=== PATIENT | female | born 1965 | race Caucasian/White ===

== ENCOUNTER 2021-06-07 06:29 | Day surgery (SDC) | payer MEDICARE, OTHER ==
[2021-06-07] VITALS (9 sets, daily range): BP systolic 120–152; BP diastolic 68–91; PULSE 64–87; TEMP 98.1–98.8
[~2021-06-07] VITALS: Ht 175.3 cm; Wt 82.3 kg
[2021-06-07] MEDS ORDERED: PRINIVIL40 MG PO (07:00)
[2021-06-07] MEDS ORDERED: HCTZ12.5TAB PO (07:01)
[2021-06-07] MEDS ORDERED: PROTONIX20 MG PO (07:02)
[2021-06-07] MEDS ORDERED: NATURAL MAGNES200 MG PO (07:02)
[2021-06-07] MEDS ORDERED: AMARYL1 MG PO (07:03)
[2021-06-07] MEDS ORDERED: NEURONTIN100 MG/CAP PO (07:03)
[2021-06-07] MEDS ORDERED: EFFEXOR XR75 MG/CAP PO (07:03)
[2021-06-07] MEDS ORDERED: GLUCOPHAGE500 MG/TAB PO (07:04)
[2021-06-07] MEDS ORDERED: ATIVAN 0.50.5 MG/TAB PO (07:04)
--- NOTE | 2021-06-07 07:50 | NUR ---
0640: Patient arrived to outpatient surgery with , Rl. Patient prepped for OR with CHG scrub to left knee and VANESSA hose applied to right lower extremity. 18G placed in left forearm.
--- NOTE | 2021-06-07 12:40 | NUR ---
PATIENT ADMITED INTO ROOM 330 POST OP LTK. A&O. VSS. NO C/O PAIN OR NAUSEA. LLE DRESSING IS CD&I WITH ACEWRAP AND ICE PACK INPLACE. TEDS TO RLE. SCD'S TO BLE. POSITIVE PEDAL PULSES TO BLE. IV FLUIDS INFUSING INTO LEFT FORARM IV. BS IN PACU WAS 107. LIQUIDS AT BEDSIDE. HEAD TO TOE ASSESSMENT COMPLETE. ORIENTED TO ROOM. AT BEDSIDE. CALL LIGHT IN REACH.
--- NOTE | 2021-06-07 13:15 | NUR ---
PATIENT C/O PAIN IN LLE RATED AT 5-6 ON PAIN SCALE. GAVE PRN ROXYCODONE, ONE TAB AND SCHEDULED TYLENOL. PATIENT REPOSITIONED TO COMFORT. PATIENT TOLERATING JELLO WELL. AT BEDSIDE. NO OTHER NEEDS.
--- NOTE | 2021-06-08 01:33 | NUR ---
PT ASSISTED TO BSC WITH SBA. GAITBELT ET WALKER USED. PT TOLERATES ACTIVITY WELL, STATES THAT PAIN IS "NOT BAD", ET RATES IT 5/10. PT URINATES ET RETURNS TO BED. SCDS ON DINESH LEGS. PO TYLENOL ADMINSISTERED ET ANCEF IV TO BEGIN INFUSING THROUGH PT'S SALINE LOCK USING BARD INFUSER. PT DENIES ANY NEEDS. KIMBERLY LIGHT WITHIN REACH.
[2021-06-08 03:22] VITALS: BP 147/85; PULSE 80; TEMP 98.5
--- NOTE | 2021-06-08 05:30 | NUR ---
PT ASSISTED TO BR USING WALKER, GAITBELT ET SBA. GAIT IS STEADY. PT REPORTS HAVING BM BUT HAD FLUSHED TOILET ON OWN. ASSISTED BACK TO BED. PT STATES THAT PAIN IS MINIMAL @ THIS TIME, RATES 3/10. ICE PACK PLACED TO LEFT KNEE. DENIES OTHER NEEDS. CALL LIGHT WITHIN REACH.
[2021-06-08 08:03] VITALS: BP 142/83; PULSE 84; TEMP 98.6
[2021-06-08 08:13] LABS: HEMOGLOBIN 10.5 g/dl (12.5-16.0)
[2021-06-08 08:17] LABS: HEMATOCRIT 30.8 % (37.0-47.0)
--- NOTE | 2021-06-08 10:39 | NUR ---
PT UP WITH THERAPY, AMBULATES WITH SLOW STEADY GAIT. PAIN WELL CONTROLLED WITH PO MEDS. DRESSING CHANGE COMPLETE, AQUACELL PLACED OVER INCISION.
[2021-06-08 11:57] VITALS: BP 152/82; PULSE 87; TEMP 98.3
--- NOTE | 2021-06-08 11:57 | NUR ---
SW met with patient in her room while patient was sitting in chair. D/C plan was discussed with patient. She lives in [place] with her husb in a one level home. No 02 needs but will d/c with a walker. No other DME's. Patient was fully independent prior with no assistive devices. PCP is Dr. Zita Pena in [place]. She has no difficulty obtaining her meds and uses the [facility] [place]. SIMONE discussed establishing DPOA but patient was already given the form and she states she and her will fill it out later. Physical Therapy will be in to see patient this afternoon for a second time. *D/C home likely pending p/t recommendations
[2021-06-08] MEDS ORDERED: XARELTO10 MG PO (12:33)
[2021-06-08] MEDS ORDERED: ROXICODONE 55 MG/TAB PO (12:34)
[2021-06-08] MEDS ORDERED: ULTRAM 50MG TAB50 MG PO (12:34)
[2021-06-08] MEDS ORDERED: SENOKOT S 50 MG1 TAB PO (12:35)
--- NOTE | 2021-06-08 12:35 | NUR ---
First visit from the director of aviation. No needs right now.
--- NOTE | 2021-06-08 14:26 | NUR ---
DISCHARGE INSTRUCTIONS PROVIDED TO PT AND . QUESTIONS SOLICITED AND ANSWERED IV DISCONTINUED. PT DISCHARGED TO POV.
== END 2021-06-08 14:54 | disposition home or self-care (01) ==
LOC: SURG 06:29 → SDCO 06:29 → INPTSU 06:29 → EDSTATUS 07:30 → SURG 07:30 → INPTSU 12:40 → SURG 12:40 → SDCO 06-08 14:54
PROVIDERS: Orthopaedic Surgery
DX: M17.12 Unilateral primary osteoarthritis, left knee (principal); Z79.84 Long term (current) use of oral hypoglycemic drugs; Z79.899 Other long term (current) drug therapy; Z86.718 Personal history of other venous thrombosis and embolism; K21.9 Gastro-esophageal reflux disease without esophagitis; F32.9 Major depressive disorder, single episode, unspecified; F41.9 Anxiety disorder, unspecified; E11.42 Type 2 diabetes mellitus with diabetic polyneuropathy
CPT/HCPCS: OP; A9284; C1713; C1776; J0360; J0690; J7030

== ENCOUNTER 2022-05-16 13:55 | Day surgery (SDC) | payer MEDICARE, OTHER ==
[2022-05-16] VITALS (8 sets, daily range): BP systolic 137–165; BP diastolic 77–96; PULSE 73–94; TEMP 98–98.1
[~2022-05-16] VITALS: Ht 175.3 cm; Wt 85.0 kg
[~2022-05-16 13:55] MED LIST: AMARYL1 MG PO; ATIVAN 0.50.5 MG/TAB PO; EFFEXOR XR75 MG/CAP PO; GLUCOPHAGE500 MG/TAB PO; HCTZ12.5TAB PO; NATURAL MAGNES200 MG PO; NEURONTIN100 MG/CAP PO; PRINIVIL40 MG PO; PROTONIX20 MG PO; ROXICODONE 55 MG/TAB PO; SENOKOT S 50 MG1 TAB PO; ULTRAM 50MG TAB50 MG PO; XARELTO10 MG PO
[2022-05-16] MEDS ORDERED: NEURONTIN300 MG/CAP PO (14:31)
[2022-05-16] MEDS ORDERED: PYRIDIUM 100MG100 MG PO (18:10)
--- NOTE | 2022-05-16 21:57 | NUR ---
PT ARRIVED FROM PACU AT 1845. PT IMMEDIATELY ABLE TO TOLERATE ORAL INTAKE AND URINATED WITHOUT DIFFICULTY. PT AMBULATING AND NO COMPLAINTS OF PAIN OR NAUSEA. CRN DISCHARGED PT, REMOVED IV
== END 2022-05-16 21:19 | disposition home or self-care (01) ==
LOC: SDCO 13:55 → SURG 20:50 → SDCO 21:19
DX: N20.1 Calculus of ureter (principal); Z86.16 Personal history of COVID-19
CPT/HCPCS: OP; C1769; C2617; J0690; J1100; J2405; J2704; J3010; J7120; Q9967

== ENCOUNTER → 2022-06-15 | Outpatient (CLI) | payer MEDICARE, OTHER ==
[~2022-06-15] MED LIST changes: +NEURONTIN300 MG/CAP PO; +PYRIDIUM 100MG100 MG PO
== END ==
LOC: COL.RAD 09:46
DX: E21.3 Hyperparathyroidism, unspecified (principal)
CPT/HCPCS: A9500